=== PATIENT | female | born 1970 | race Caucasian/White ===

== ENCOUNTER 2018-03-01 14:27 | Observation (INO) ==
[2018-03-01] MEDS ORDERED: NITROGLYCERIN SL 0.4 MG TABLET SL ONE (14:44)
[2018-03-01] MEDS ORDERED: ASPIRIN 325 MG TABLET ONE (14:44)
[2018-03-01] MEDS ORDERED: ASPIRIN 325 MG TABLET PO STA (14:44)
[2018-03-01] MEDS ORDERED: NITROGLYCERIN SL 0.4 MG TABLET SL PRN (14:44)
[2018-03-01] MEDS ORDERED: ENOXAPARIN 120 MG/0.8 ML SYRINGE SUBCUT ONE (14:44)
[2018-03-01] MEDS ORDERED: ENOXAPARIN 100 MG/ML SYRINGE SUBCUT STA (14:44)
[2018-03-01] MEDS ORDERED: NITROGLYCERIN 2% OINT 1 INCH/GM PACK TOP STA (14:44)
[2018-03-01 15:02] LABS: Basophils # 0.1 10*3/uL (0.0-0.2); Basophils % 0.6 % (0.0-0.8); Eosinophils # 0.3 10*3/uL (0.0-0.87); Eosinophils % 2.9 % (0.00-10.9); Hematocrit 36.9 VOL% (35.7-47.0); Hemoglobin 11.9 GM/DL (12.0-16.0); Immature Granulocytes % 0.4 %; Immature Granulocytes Absolute 0.04 #; Lymphocytes # 2.4 10*3/uL (1.4-4.0); Lymphocytes % 23.4 % (21.3-54.2); Mean Corpuscular HGB Conc 32.2 GM/DL (32-36); Mean Corpuscular Hemoglobin 29 PG (27-34); Mean Corpuscular Volume 88.7 FL (87-102); Mean Platelet Volume 10.8 FL (9.6-12.0); Monocytes # 0.8 10*3/uL (0.11-0.8); Monocytes % 7.9 % (1.7-12.7); Neutrophils # 6.5 10*3/uL (1.4-7.4); Neutrophils % 64.8 % (38.7-73.9); Platelet Count 280 T/CUMM (130-400); Red Blood Count 4.16 MC/CUMM (3.8-5.5); Red Cell Distribution Width 14.5 % (9.3-17.3); White Blood Count 10.1 T/CUMM (4-12)
[2018-03-01 15:09] LABS: INR 0.9
[2018-03-01 15:24] LABS: Albumin 3.7 G/DL (3.4-5.0); Bilirubin,Total 0.4 MG/DL (0.2-1.0); Calcium 8.8 MG/DL (8.5-10.1); Potassium 3.4 MMOL/L (3.5-5.1); Total Protein 8.6 G/DL (6.4-8.3)
[2018-03-01] MEDS ORDERED: POTASSIUM CHLORIDE 20 MEQ TABLET PO PRN (16:29)
[2018-03-01] MEDS ORDERED: MORPHINE 4 MG/1 ML VIAL IV PRN (16:29)
[2018-03-01 18:23] LABS: Risk Ratio 8.15; VLDL CHOLESTEROL 61.2 MG/DL
[2018-03-01] MEDS: LORazepam 1 MG TABLET PO PRN (18:26)
[2018-03-01] MEDS: NITROGLYCERIN 2% OINT 1 INCH/GM PACK TOP SCH (18:28)
[2018-03-02] MEDS: LORazepam 1 MG TABLET PO PRN ×3 (00:55→20:53)
[2018-03-02] MEDS: NITROGLYCERIN 2% OINT 1 INCH/GM PACK TOP SCH ×4 (00:55→17:16)
[2018-03-02] MEDS: ENOXAPARIN 40 MG/0.4 ML SYRINGE SUBCUT SCH (06:09)
[2018-03-02 09:14] LABS: Albumin 3.3 G/DL (3.4-5.0); Bilirubin,Total 0.5 MG/DL (0.2-1.0); Calcium 8.7 MG/DL (8.5-10.1); Free T4 (Free Thyroxine) 1.08 NG/DL (0.76-1.46); Osmolality,Calculated 280.4 MOS/KG (273-304); Thyroid Stimulating Hormone 2.96 uIU/ml (0.358-3.74); Total Protein 7.7 G/DL (6.4-8.3)
[2018-03-02] MEDS: FOLIC ACID 1 MG TABLET PO SCH (11:16)
[2018-03-02] MEDS: THIAMINE 100 MG TABLET PO SCH (11:16)
[2018-03-02] MEDS: MULTIVITAMIN (CENTRUM) TABLET PO SCH (11:16)
[2018-03-02] MEDS: ASPIRIN EC 325 MG TABLET PO SCH (11:16)
[2018-03-02 13:53] LABS: Apearance,Urine Slightly Hazy (Clear); Bacteria,Urine Occasional /HPF (Few); Bilirubin,Urine Negative (Negative); Blood, Urine Negative (Negative); Glucose,Urine (UA) Negative (Negative); Ketones,Urine Negative (Negative); Mucus,Urine Occasional /LPF (Occasional); Nitrite,Urine Negative (Negative); Protein,Urine Negative; RBC,Urine <1 /HPF (0-4); Squamous Epithelial Cell,Urine Occasional /HPF (0-10); Urine Color Yellow (Yellow); Urine Specific Gravity 1.021 (1.001-1.035); Urine Urobilinogen < 2.0 EU/DL (0.2-1.0); WBC,Urine 1 /HPF (0-6)
[2018-03-02] MEDS ORDERED: MAGNESIUM SULF RIDER 2 GM in PREMIX 1 EACH IV PRN (15:07)
[2018-03-02] MEDS ORDERED: POTASSIUM CHLORIDE RIDER 10 MEQ in PREMIX 1 EACH IV PRN (15:07)
[2018-03-02] MEDS: LOVASTATIN 20 MG TABLET PO SCH (17:16)
[2018-03-02] MEDS: CARVEDILOL 3.125 MG TABLET PO SCH (20:51)
[2018-03-03] MEDS: NITROGLYCERIN 2% OINT 1 INCH/GM PACK TOP SCH ×4 (00:20→18:34)
[2018-03-03 04:56] LABS: Basophils # 0.1 10*3/uL (0.0-0.2); Basophils % 0.8 % (0.0-0.8); Eosinophils # 0.5 10*3/uL (0.0-0.87); Eosinophils % 7.8 % (0.00-10.9); Hematocrit 35.2 VOL% (35.7-47.0); Hemoglobin 10.7 GM/DL (12.0-16.0); Immature Granulocytes % 0.5 %; Immature Granulocytes Absolute 0.03 #; Lymphocytes # 2.1 10*3/uL (1.4-4.0); Lymphocytes % 33.6 % (21.3-54.2); Mean Corpuscular HGB Conc 30.4 GM/DL (32-36); Mean Corpuscular Hemoglobin 28 PG (27-34); Mean Corpuscular Volume 91.9 FL (87-102); Mean Platelet Volume 11.1 FL (9.6-12.0); Monocytes # 0.5 10*3/uL (0.11-0.8); Monocytes % 7.3 % (1.7-12.7); Neutrophils # 3.1 10*3/uL (1.4-7.4); Platelet Count 238 T/CUMM (130-400); Red Blood Count 3.83 MC/CUMM (3.8-5.5); Red Cell Distribution Width 14.6 % (9.3-17.3); White Blood Count 6.3 T/CUMM (4-12)
[2018-03-03 05:25] LABS: Calcium 8.6 MG/DL (8.5-10.1); Osmolality,Calculated 279.4 MOS/KG (273-304); Potassium 4.3 MMOL/L (3.5-5.1)
[2018-03-03] MEDS: ENOXAPARIN 40 MG/0.4 ML SYRINGE SUBCUT SCH (06:19)
[2018-03-03] MEDS ORDERED: diphenhydrAMINE CAP 25 MG CAPSULE PO ONE (07:00)
[2018-03-03] MEDS ORDERED: DIAZEPAM 5 MG TABLET PO ONE (07:00)
[2018-03-03] MEDS ORDERED: HEPARIN/NACL 0.9% 2 UNITS/ML 1,000 ML IV ONE (08:14)
[2018-03-03] MEDS ORDERED: NITROGLYCERIN DRIP 50 MG/250 ML BOTTLE IV ONE (08:16)
[2018-03-03] MEDS ORDERED: VERAPAMIL 5 MG/2 ML VIAL ONE (08:17)
[2018-03-03] MEDS ORDERED: MIDAZOLAM 2 MG/2 ML VIAL ONE ×2 (08:17→08:29)
[2018-03-03] MEDS ORDERED: fentaNYL 100 MCG/2 ML VIAL ONE (08:17)
[2018-03-03] MEDS ORDERED: ASPIRIN EC 325 MG TABLET PO ONE (08:27)
[2018-03-03] MEDS ORDERED: ASPIRIN 325 MG TABLET ONE (08:27)
[2018-03-03] MEDS ORDERED: diphenhydrAMINE 50 MG/1 ML VIAL ONE (08:29)
[2018-03-03] MEDS ORDERED: ENOXAPARIN 60 MG/0.6 ML SYRINGE ONE (08:31)
[2018-03-03] MEDS: CARVEDILOL 3.125 MG TABLET PO SCH (13:43)
[2018-03-03] MEDS: THIAMINE 100 MG TABLET PO SCH (13:44)
[2018-03-03] MEDS: FOLIC ACID 1 MG TABLET PO SCH (13:44)
[2018-03-03] MEDS: MULTIVITAMIN (CENTRUM) TABLET PO SCH (13:44)
[2018-03-03] MEDS: ASPIRIN EC 325 MG TABLET PO SCH (13:45)
[2018-03-03 16:10] VITALS: BP 106/59
[2018-03-03] MEDS: LOVASTATIN 20 MG TABLET PO SCH (18:34)
== END 2018-03-03 19:35 | disposition home or self-care (01) ==
LOC: N.EDINP 14:27 → N.ED 14:27 → MERGE 15:59 → SUATTDRO 15:59 → N.4E 16:40
PROVIDERS: ADMIT Internal Medicine Infectious Disease; ATTEND Family Medicine
PROC: CLCCHCL (ICD-10-PCS; 2018-03-03 08:45)